=== PATIENT | male | born 1970 | race Caucasian/White ===

== ENCOUNTER 2017-03-30 10:39 | Emergency (ER) | payer OTHER ==
[~2017-03-30 10:39] MED LIST: AMITRIPTYLINE H50 MG PO; COUMADIN2 MG PO; CYCLOBENZAPRINE10 MG PO; DEPAKENE250 MG PO; IMITREX20 MG/ACT; INDOMETHACIN25 MG PO; IRON325 MG PO; LISINOPRIL10 MG PO; MAG-OX 400400 MG PO; METOPROLOL SUCC50 MG PO; NORCO1 TA1 PO; OXYCODONE HCL5 MG PO; PRILOSEC20 MG PO; VERAPAMIL HCL40 MG PO; VISTARIL25 MG PO; WARFARIN SODIUM1 MG PO
--- NOTE | 2017-03-30 12:00 | ED CLINICAL REPORT ---
Clinical Report - Physicians/Mid Levels [facility] [address] [place] [address] 03/30/2017 10:39 Patient: CRZU RIVERA Time Seen: 11:05. Arrived- By private vehicle. Historian- patient. HISTORY OF PRESENT ILLNESS Chief Complaint: LOWER EXTREMITY SWELLING. This started several days ago and is still present but is better now. Severity is described as being moderate. Quality not described as "pain". Modifying factors- worsened by standing. Relieved by lying down. Symptoms located in the area of the right ankle, right leg, left leg and left ankle. The patient has had swelling, but not had redness. No difficulty walking. No bladder dysfunction, bowel dysfunction, sensory loss or motor loss. ( The patient states that he was out in his yard yesterday doing work, and when he came inside to change into GlycoVaxyn, he noticed that his lower legs and ankles swollen. However the right side was bigger than the left. Patient has a history of a DVT on the right which was diagnosed about a year ago. He has been on Coumadin and is unsure whether the clot is still there or not. Patient denies any new pain in either of his legs. He denies shortness of breath or chest pain. He has no history of congestive heart failure or renal failure.). Patient denies an injury. Similar symptoms previously: None. Recent medical care: Not recently seen/assessed. REVIEW OF SYSTEMS No cough, chest pain, difficulty breathing, fever or skin rash. No enlarged lymph nodes, neck pain, back pain, headache or blurred vision. No sore throat, abdominal pain, vomiting, diarrhea or black stools. No difficulty with urination or bloody stools. All systems otherwise negative, except as recorded above. PAST HISTORY Problems: DVT - Deep Venous Thrombosis. Tetanus Status. Renal Colic. Migraine Headache. Ureterolithiasis. Anemia. Gastroesophageal Reflux Disease. Immunizations. Hypertension. Additional Surgeries: Carpal Tunnel Surgery. Left knee surgery. Toe nail removal. Tympanostomy Tubes. Medications: Antidepressant 20mg , daily (can't remember the name). Ondansetron HCl Oral (Tablet 8 mg), as needed. Cyclobenzaprine HCl Oral (Tablet 10 mg), 2x a day. Azlwmuwqwx-GQIX-Kokv-Cod Oral no more than 6 tablets in 24 hours, as needed (for migraines). Coumadin Oral 5 mg, daily. Gemfibrozil Oral 600 mg, daily. Lisinopril Oral 20 mg, daily. Metoprolol ER 200mg daily . Omeprazole Oral 40 mg, daily. OxyCODONE HCl Oral 5 mg, 4x a day. Topiramate Oral 100 mg, daily as needed. TraZODone HCl Oral 50 mg, at bedtime as needed. Verapamil HCl Oral 40 mg, 2x a day. Allergies: NSAIDs. (irritate stomach lining, makes "stomach bleed'. ). SOCIAL HISTORY Former smoker. Occasional alcohol use. No drug use. ADDITIONAL NOTES The nursing notes have been reviewed. PHYSICAL EXAM Vital Signs: 03/30/2017 10:52 BP: 155/85. HR: 64. RR: 11. O2 saturation: 95%. Temp: 98.4 F. Have been reviewed. Appearance: Alert. Oriented X3. No acute distress. Eyes: Pupils equal, round and reactive to light. Eyes normal inspection. ENT: Nose normal. Neck: Normal inspection. CVS: Normal heart rate and rhythm. Pulses normal. Strong peripheral pulses. Heart sounds normal. Respiratory: No respiratory distress. Breath sounds normal. Abdomen: Soft and nontender. Back: Normal inspection. Skin: Skin intact. Skin warm and dry. Normal skin color. Normal skin turgor. Extremities: (The patient has no pitting edema in either lower extremity. He has mild right calf tenderness. His right calf is mildly enlarged compared to the left.). Extremities otherwise negative. Neuro: Oriented X 3. No motor deficit. No sensory deficit. LABS, X-RAYS, AND EKG Lower Extremity Sonography: Negative exam. No compression abnormality noted. Visualized common femoral artery and common femoral vein, superficial femoral artery and superficial femoral vein, deep femoral artery and deep femoral vein and popliteal artery and popliteal vein. Vessels patent. Augmented flow present with calf compression. Study type: utilized duplex sonography. The exam was performed by a radiology technician. The study was interpreted by the radiologist and discussed with the radiologist. Prior studies were not available for comparison. Pulse Oximetry: 03/30/2017 10:52 O2 saturation: 95%. (FIO2 - room air). Interpretation: normal. PROGRESS AND PROCEDURES Course of Care: the patient had no symptoms of congestive heart failure, and no history of renal failure. He did not have any pitting edema and in fact, edema was minimal as noted by me. However, he did have a history of DVT on the right and the right leg was enlarged and I felt that patient should have an ultrasound to evaluate this. This was performed and found to be negative. Patient counseled in person regarding the patient's stable condition, test results, diagnosis and need for follow-up. Concerns were addressed. Old medical records reviewed. Disposition: Discharged. Condition: stable. CLINICAL IMPRESSION Bilateral pedal edema secondary to unknown cause. INSTRUCTIONS (Your ultrasound looks good--no clot is left in your leg. You can try using compression stockings and elevating your legs to work the fluid out.). Warnings: GENERAL WARNINGS: Return or contact your physician immediately if your condition worsens or changes unexpectedly, if not improving as expected, or if other problems arise. Your Current Medications: CONTINUE TAKING THE FOLLOWING MEDICATIONS: Antidepressant* : 20mg daily, can't remember the name. Yhrfdxiyql-HVMP-Oiex-Cod Oral : no more than 6 tablets in 24 hours, prn, for migraines. Follow-up: Follow up with your doctor as needed. Understanding of the discharge instructions verbalized by patient. (Electronically signed by Keisha Lilly MD 03/30/2017 13:31)
--- NOTE | 2017-03-30 12:00 | ED CLINICAL REPORT ---
Clinical Report - Physicians/Mid Levels [facility] [address] [place] [address] 03/30/2017 10:39 Patient: CRUZ RIVERA Time Seen: 11:05. Arrived- By private vehicle. Historian- patient. HISTORY OF PRESENT ILLNESS Chief Complaint: LOWER EXTREMITY SWELLING. This started several days ago and is still present but is better now. Severity is described as being moderate. Quality not described as "pain". Modifying factors- worsened by standing. Relieved by lying down. Symptoms located in the area of the right ankle, right leg, left leg and left ankle. The patient has had swelling, but not had redness. No difficulty walking. No bladder dysfunction, bowel dysfunction, sensory loss or motor loss. ( The patient states that he was out in his yard yesterday doing work, and when he came inside to change into Nerveda, he noticed that his lower legs and ankles swollen. However the right side was bigger than the left. Patient has a history of a DVT on the right which was diagnosed about a year ago. He has been on Coumadin and is unsure whether the clot is still there or not. Patient denies any new pain in either of his legs. He denies shortness of breath or chest pain. He has no history of congestive heart failure or renal failure.). Patient denies an injury. Similar symptoms previously: None. Recent medical care: Not recently seen/assessed. REVIEW OF SYSTEMS No cough, chest pain, difficulty breathing, fever or skin rash. No enlarged lymph nodes, neck pain, back pain, headache or blurred vision. No sore throat, abdominal pain, vomiting, diarrhea or black stools. No difficulty with urination or bloody stools. All systems otherwise negative, except as recorded above. PAST HISTORY Problems: DVT - Deep Venous Thrombosis. Tetanus Status. Renal Colic. Migraine Headache. Ureterolithiasis. Anemia. Gastroesophageal Reflux Disease. Immunizations. Hypertension. Additional Surgeries: Carpal Tunnel Surgery. Left knee surgery. Toe nail removal. Tympanostomy Tubes. Medications: Antidepressant 20mg , daily (can't remember the name). Ondansetron HCl Oral (Tablet 8 mg), as needed. Cyclobenzaprine HCl Oral (Tablet 10 mg), 2x a day. Rfwykoxbnc-ENFI-Ledk-Cod Oral no more than 6 tablets in 24 hours, as needed (for migraines). Coumadin Oral 5 mg, daily. Gemfibrozil Oral 600 mg, daily. Lisinopril Oral 20 mg, daily. Metoprolol ER 200mg daily . Omeprazole Oral 40 mg, daily. OxyCODONE HCl Oral 5 mg, 4x a day. Topiramate Oral 100 mg, daily as needed. TraZODone HCl Oral 50 mg, at bedtime as needed. Verapamil HCl Oral 40 mg, 2x a day. Allergies: NSAIDs. (irritate stomach lining, makes "stomach bleed'. ). SOCIAL HISTORY Former smoker. Occasional alcohol use. No drug use. ADDITIONAL NOTES The nursing notes have been reviewed. PHYSICAL EXAM Vital Signs: 03/30/2017 10:52 BP: 155/85. HR: 64. RR: 11. O2 saturation: 95%. Temp: 98.4 F. Have been reviewed. Appearance: Alert. Oriented X3. No acute distress. Eyes: Pupils equal, round and reactive to light. Eyes normal inspection. ENT: Nose normal. Neck: Normal inspection. CVS: Normal heart rate and rhythm. Pulses normal. Strong peripheral pulses. Heart sounds normal. Respiratory: No respiratory distress. Breath sounds normal. Abdomen: Soft and nontender. Back: Normal inspection. Skin: Skin intact. Skin warm and dry. Normal skin color. Normal skin turgor. Extremities: (The patient has no pitting edema in either lower extremity. He has mild right calf tenderness. His right calf is mildly enlarged compared to the left.). Extremities otherwise negative. Neuro: Oriented X 3. No motor deficit. No sensory deficit. LABS, X-RAYS, AND EKG Lower Extremity Sonography: Negative exam. No compression abnormality noted. Visualized common femoral artery and common femoral vein, superficial femoral artery and superficial femoral vein, deep femoral artery and deep femoral vein and popliteal artery and popliteal vein. Vessels patent. Augmented flow present with calf compression. Study type: utilized duplex sonography. The exam was performed by a technician inventory specialist. The study was interpreted by the radiologist and discussed with the radiologist. Prior studies were not available for comparison. Pulse Oximetry: 03/30/2017 10:52 O2 saturation: 95%. (FIO2 - room air). Interpretation: normal. PROGRESS AND PROCEDURES Course of Care: the patient had no symptoms of congestive heart failure, and no history of renal failure. He did not have any pitting edema and in fact, edema was minimal as noted by me. However, he did have a history of DVT on the right and the right leg was enlarged and I felt that patient should have an ultrasound to evaluate this. This was performed and found to be negative. Patient counseled in person regarding the patient's stable condition, test results, diagnosis and need for follow-up. Concerns were addressed. Old medical records reviewed. Disposition: Discharged. Condition: stable. CLINICAL IMPRESSION Bilateral pedal edema secondary to unknown cause. INSTRUCTIONS (Your ultrasound looks good--no clot is left in your leg. You can try using compression stockings and elevating your legs to work the fluid out.). Warnings: GENERAL WARNINGS: Return or contact your physician immediately if your condition worsens or changes unexpectedly, if not improving as expected, or if other problems arise. Your Current Medications: CONTINUE TAKING THE FOLLOWING MEDICATIONS: Antidepressant* : 20mg daily, can't remember the name. Aaaegncluu-ADKC-Kkmq-Cod Oral : no more than 6 tablets in 24 hours, prn, for migraines. Follow-up: Follow up with your doctor as needed. Understanding of the discharge instructions verbalized by patient. (Electronically signed by Keisha Lilly MD 03/30/2017 13:31)
--- NOTE | 2017-03-30 12:01 | ED NURSING NOTES ---
Clinical Report - Nurses [facility] [address] [place] [address] 03/30/2017 10:39 Patient: CRUZ RIVERA TRIAGE Triage time 10:52 Mar 30 2017. Acuity: LEVEL 3. Chief Complaint: RIGHT LOWER EXTREMITY PAIN. Alert. No acute distress. ELIS COMA SCORE: Elis Coma Scale: 15- eyes open spontaneously (4); best verbal response- oriented x 4 (5); best motor response- obeys commands (6). --11:05 Karen Kaur R.N. 10:52 03/30/17. BP: 155/85. HR: 64. RR: 11. O2 saturation: 95%. Temp: 98.4 F. Pain level now 11/17. --11:05 Karen Kaur R.N. Weight: 111.1 kg stated. Height/Length: 72 inches Per Patient. BMI: 33.2. --10:52 Karen Kaur R.N. Medications Tsmoyabscc-RBXH-Rdvd-Cod Oral no more than 6 tablets in 24 hours, as needed (for migraines). Coumadin Oral 5 mg, daily. Gemfibrozil Oral 600 mg, daily. Lisinopril Oral 20 mg, daily. Metoprolol ER 200mg daily . Omeprazole Oral 40 mg, daily. OxyCODONE HCl Oral 5 mg, 4x a day. Topiramate Oral 100 mg, daily as needed. TraZODone HCl Oral 50 mg, at bedtime as needed. Verapamil HCl Oral 40 mg, 2x a day. --10:57 Karen Kaur R.N. Cyclobenzaprine HCl Oral (Tablet 10 mg), 2x a day. --11:02 aKren Kaur R.N. Ondansetron HCl Oral (Tablet 8 mg), as needed. --11:02 Karen Kaur R.N. Antidepressant 20mg , daily (can't remember the name). --11:03 Karen Kaur R.N. Allergies NSAIDs. (irritate stomach lining, makes "stomach bleed'. ) --10:58 Karen aKur R.N. History Arrived by private vehicle. Historian: patient. Primary physician ([facility]). ( Pt sent over from [facility] for r/o DVT in the lower extremity. Pt has noticed that his lower legs and ankles have been swollen, cannot pinpoint a date or length of time. Some areas are painful. Has been more active than normal, no recent long trips or flights. Pt has a Hx of DVT in the Right LE 1 year ago, takes Coumadin for this 5 mg daily. Last Coumadin check was 2 months ago - [facility]. INR was 2.6 at that time. Currently the pt has a pain level of 1/10 on the right posterior leg.). No injury occurred. This occurred at an unknown time. 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 PAST MEDICAL HX: Tetanus status: up-to-date. Immunizations: seasonal influenza. SOCIAL HX: Former smoker. Occasional alcohol use. No drug use. He has not traveled outside the [place] No infectious disease exposure. FALL RISK ASSESSMENT: Fall risk assessment completed. No fall risk identified. NUTRITIONAL RISK ASSESSMENT: The nutritional risk assessment revealed no deficiencies. FUNCTIONAL ASSESSMENT: Functional assessment: no impairments noted. LEARNING NEEDS ASSESSMENT: The learning needs assessment revealed no barriers. SKIN INTEGRITY ASSESSMENT: Skin integrity risk assessment completed. No skin integrity risk identified. --11:05 Karen Kaur R.N. PROBLEMS: Lower Extremity Pain. DVT - Deep Venous Thrombosis. Tetanus Status. Renal Colic. Migraine Headache. Ureterolithiasis. Anemia. Gastroesophageal Reflux Disease. Immunizations. Hypertension. --11:01 Karen Kaur R.N. Cellulitis [RuleOut]. --11:01 Karen Kaur R.N. ADDITIONAL SURGERIES: Carpal Tunnel Surgery. Left knee surgery. Toe nail removal. Tympanostomy Tubes. --11:01 Karen Kaur R.N. Interventions ID band on patient. To room. --11:05 Karen Kaur R.N. PHYSICAL ASSESSMENT Ambulatory to room. GENERAL / NEURO / PSYCH: Oriented X 4. Alert. Appears in no acute distress. EXTREMITIES: Extremity pulses are within normal limits. Extremities exhibit normal ROM. Neuro-vascular status intact to the extremity. SKIN: Skin is warm and dry. --11:26 Karen Kaur R.N. NURSING PROGRESS NOTES Patient ready for evaluation- ED physician notified. --11:24 Karen Kaur R.N. ( US at bedside.). --11:33 Karen Kaur R.N. ( pt ready for discharge. US Negative.). --12:09 Karen Kaur R.N. DISPOSITION / DISCHARGE Condition at departure: improved and stable. No learning barriers present. Discharge instructions provided and reviewed with the patient. Patient verbalized understanding. Written instructions provided in Thai. The patient was discharged by the physician. He was discharged home. He left the Emergency Department ambulatory and via private vehicle. Patient driving. FALL RISK ASSESSMENT: Fall risk assessment completed. No fall risk identified. --12:10 Karen Kaur R.N. 12:10 03/30/17. BP: 124/83. HR: 60. RR: 18. O2 saturation: 96%. Pain level now 0/10. --12:10 Karen Kaur R.N. Departure time: 12:16 Mar 30 2017. --12:16 Karen Kaur R.N. Locked/Released at 03/30/2017 12:17 by Karen Kaur R.N.
--- NOTE | 2017-03-30 12:01 | ED NURSING NOTES ---
Clinical Report - Nurses [facility] [address] [place] [address] 03/30/2017 10:39 Patient: CRUZ RIVERA TRIAGE Triage time 10:52 Mar 30 2017. Acuity: LEVEL 3. Chief Complaint: RIGHT LOWER EXTREMITY PAIN. Alert. No acute distress. ELIS COMA SCORE: Elis Coma Scale: 15- eyes open spontaneously (4); best verbal response- oriented x 4 (5); best motor response- obeys commands (6). --11:05 Karen Kaur R.N. 10:52 03/30/17. BP: 155/85. HR: 64. RR: 11. O2 saturation: 95%. Temp: 98.4 F. Pain level now 11/17. --11:05 Karen Kaur R.N. Weight: 111.1 kg stated. Height/Length: 72 inches Per Patient. BMI: 33.2. --10:52 Karen Kaur R.N. Medications Ietflmdqnj-HGCT-Hwpe-Cod Oral no more than 6 tablets in 24 hours, as needed (for migraines). Coumadin Oral 5 mg, daily. Gemfibrozil Oral 600 mg, daily. Lisinopril Oral 20 mg, daily. Metoprolol ER 200mg daily . Omeprazole Oral 40 mg, daily. OxyCODONE HCl Oral 5 mg, 4x a day. Topiramate Oral 100 mg, daily as needed. TraZODone HCl Oral 50 mg, at bedtime as needed. Verapamil HCl Oral 40 mg, 2x a day. --10:57 Karen Kaur R.N. Cyclobenzaprine HCl Oral (Tablet 10 mg), 2x a day. --11:02 Karen Kaur R.N. Ondansetron HCl Oral (Tablet 8 mg), as needed. --11:02 Karen Kaur R.N. Antidepressant 20mg , daily (can't remember the name). --11:03 Karen Kaur R.N. Allergies NSAIDs. (irritate stomach lining, makes "stomach bleed'. ) --10:58 Karen Kaur R.N. History Arrived by private vehicle. Historian: patient. Primary physician ([facility]). ( Pt sent over from [facility] for r/o DVT in the lower extremity. Pt has noticed that his lower legs and ankles have been swollen, cannot pinpoint a date or length of time. Some areas are painful. Has been more active than normal, no recent long trips or flights. Pt has a Hx of DVT in the Right LE 1 year ago, takes Coumadin for this 5 mg daily. Last Coumadin check was 2 months ago - [facility]. INR was 2.6 at that time. Currently the pt has a pain level of 1/10 on the right posterior leg.). No injury occurred. This occurred at an unknown time. 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 PAST MEDICAL HX: Tetanus status: up-to-date. Immunizations: seasonal influenza. SOCIAL HX: Former smoker. Occasional alcohol use. No drug use. He has not traveled outside the [place] No infectious disease exposure. FALL RISK ASSESSMENT: Fall risk assessment completed. No fall risk identified. NUTRITIONAL RISK ASSESSMENT: The nutritional risk assessment revealed no deficiencies. FUNCTIONAL ASSESSMENT: Functional assessment: no impairments noted. LEARNING NEEDS ASSESSMENT: The learning needs assessment revealed no barriers. SKIN INTEGRITY ASSESSMENT: Skin integrity risk assessment completed. No skin integrity risk identified. --11:05 Karen Kaur R.N. PROBLEMS: Lower Extremity Pain. DVT - Deep Venous Thrombosis. Tetanus Status. Renal Colic. Migraine Headache. Ureterolithiasis. Anemia. Gastroesophageal Reflux Disease. Immunizations. Hypertension. --11:01 Karen Kaur R.N. Cellulitis [RuleOut]. --11:01 Karen Kaur R.N. ADDITIONAL SURGERIES: Carpal Tunnel Surgery. Left knee surgery. Toe nail removal. Tympanostomy Tubes. --11:01 Karen Kaur R.N. Interventions ID band on patient. To room. --11:05 Karen Kaur R.N. PHYSICAL ASSESSMENT Ambulatory to room. GENERAL / NEURO / PSYCH: Oriented X 4. Alert. Appears in no acute distress. EXTREMITIES: Extremity pulses are within normal limits. Extremities exhibit normal ROM. Neuro-vascular status intact to the extremity. SKIN: Skin is warm and dry. --11:26 Karen Kaur R.N. NURSING PROGRESS NOTES Patient ready for evaluation- ED physician notified. --11:24 Karen Kaur R.N. ( US at bedside.). --11:33 Karen Kaur R.N. ( pt ready for discharge. US Negative.). --12:09 Karen Kaur R.N. DISPOSITION / DISCHARGE Condition at departure: improved and stable. No learning barriers present. Discharge instructions provided and reviewed with the patient. Patient verbalized understanding. Written instructions provided in Burmese. The patient was discharged by the physician. He was discharged home. He left the Emergency Department ambulatory and via private vehicle. Patient driving. FALL RISK ASSESSMENT: Fall risk assessment completed. No fall risk identified. --12:10 Karen Kaur R.N. 12:10 03/30/17. BP: 124/83. HR: 60. RR: 18. O2 saturation: 96%. Pain level now 0/10. --12:10 Karen Kaur R.N. Departure time: 12:16 Mar 30 2017. --12:16 Karen Kaur R.N. Locked/Released at 03/30/2017 12:17 by Karen Kaur R.N.
--- NOTE | 2017-03-30 12:01 | ED ORDER SUMMARY ---
..... Patient: CRUZ RIVERA OrderSheet [facility] VisitID: [id number] [address] [place] [address] 46y, M Registration Date/Time: 03/30/2017 ORDER SHEET Weight: 111.1 kg (stated) Allergies: NSAIDs GENERAL ORDERS: US Venous Right Urgent (11:06 03/30/2017 Nestor CURRAN) (Ack 11:14 WAouse ER Tech1) (11:57 MWinterer R.NJose) MEDICATION ORDERS: IV FLUIDS: ORDER SHEET NOTES: [Electronically signed by Karen Kaur R.N. (12:17 03/30/2017)] [Electronically signed by Keisha Lilly MD (13:31 03/30/2017)] [Electronically locked/signed by Karen Kaur R.N. (12:17 03/30/2017)]
--- NOTE | 2017-03-30 12:01 | ED ORDER SUMMARY ---
..... Patient: CRUZ RIVERA OrderSheet [facility] VisitID: [id number] [address] [place] [address] 46y, M Registration Date/Time: 03/30/2017 ORDER SHEET Weight: 111.1 kg (stated) Allergies: NSAIDs GENERAL ORDERS: US Venous Right Urgent (11:06 03/30/2017 Nestor CURRAN) (Ack 11:14 [place]ouse ER Tech1) (11:57 MWinterer R.NJose) MEDICATION ORDERS: IV FLUIDS: ORDER SHEET NOTES: [Electronically signed by Karen Kaur R.N. (12:17 03/30/2017)] [Electronically signed by Keisha Lilly MD (13:31 03/30/2017)] [Electronically locked/signed by Karen Kaur R.N. (12:17 03/30/2017)]
--- NOTE | 2017-03-30 13:31 | ED MED RECONCILIATION SUMMARY ---
Patient: CRUZ RIVERA Medication Reconciliation Report [facility] VisitID: [id number] [address] [place] [address] 46y, M Registration Date/Time: 03/30/2017 Weight: 111.1 kg Height/Length: 72 in. BMI: 33.2 ALLERGIES: NSAIDs The patient's Home Medications are listed below: CONTINUE TAKING THE FOLLOWING MEDICATIONS: Antidepressant 20mg , daily, can't remember the name Xpzcnazjqf-YRFS-Jclh-Cod Oral no more than 6 tablets in 24 hours, for migraines THE FOLLOWING MEDICATIONS NEED TO BE RECONCILED: Coumadin Oral 5 mg, daily Cyclobenzaprine HCl Oral (10 mg), 2x a day Gemfibrozil Oral 600 mg, daily Lisinopril Oral 20 mg, daily Metoprolol ER 200mg daily Omeprazole Oral 40 mg, daily Ondansetron HCl Oral (8 mg) OxyCODONE HCl Oral 5 mg, 4x a day Topiramate Oral 100 mg, daily TraZODone HCl Oral 50 mg, at bedtime Verapamil HCl Oral 40 mg, 2x a day The source(s) of the original Home Medication information: Not obtained. The following Medications were given to the patient in the Emergency Department: None. The following Medications were prescribed to the patient: None.
--- NOTE | 2017-03-30 13:31 | ED MED RECONCILIATION SUMMARY ---
Patient: CRUZ RIVERA Medication Reconciliation Report [facility] VisitID: [id number] [address] [place] [address] 46y, M Registration Date/Time: 03/30/2017 Weight: 111.1 kg Height/Length: 72 in. BMI: 33.2 ALLERGIES: NSAIDs The patient's Home Medications are listed below: CONTINUE TAKING THE FOLLOWING MEDICATIONS: Antidepressant 20mg , daily, can't remember the name Oemiktfzrf-VRRG-Uxkm-Cod Oral no more than 6 tablets in 24 hours, for migraines THE FOLLOWING MEDICATIONS NEED TO BE RECONCILED: Coumadin Oral 5 mg, daily Cyclobenzaprine HCl Oral (10 mg), 2x a day Gemfibrozil Oral 600 mg, daily Lisinopril Oral 20 mg, daily Metoprolol ER 200mg daily Omeprazole Oral 40 mg, daily Ondansetron HCl Oral (8 mg) OxyCODONE HCl Oral 5 mg, 4x a day Topiramate Oral 100 mg, daily TraZODone HCl Oral 50 mg, at bedtime Verapamil HCl Oral 40 mg, 2x a day The source(s) of the original Home Medication information: Not obtained. The following Medications were given to the patient in the Emergency Department: None. The following Medications were prescribed to the patient: None.
--- NOTE | 2017-03-30 13:31 | ED DISCHARGE INSTRUCTIONS ---
Patient: CRUZ RIVERA General Instructions [facility] VisitID: [id number] [place] [address] 46y, M Registration Date/Time: 03/30/2017 Bilateral pedal edema secondary to unknown cause. INSTRUCTIONS (Your ultrasound looks good--no clot is left in your leg. You can try using compression stockings and elevating your legs to work the fluid out.). Warnings: GENERAL WARNINGS: Return or contact your physician immediately if your condition worsens or changes unexpectedly, if not improving as expected, or if other problems arise. Your Current Medications: CONTINUE TAKING THE FOLLOWING MEDICATIONS: Antidepressant* : 20mg daily, can't remember the name. Ovajfpfuga-SDPP-Ehrt-Cod Oral : no more than 6 tablets in 24 hours, prn, for migraines. Follow-up: Follow up with your doctor as needed. Understanding of the discharge instructions verbalized by patient. ADDITIONAL INFORMATION Leg Swelling [Bilateral] Swelling of the feet, ankles and legs is called "Edema." It is due to excess fluid collecting in the tissues. Because of gravity, excess fluid in the body settles in the lowest part. This is why the legs and feet are most affected. Some of the causes for edema include: Disease of the heart (congestive heart failure or "CHF") Prolonged standing or sitting (with the legs in the down position) Infection of the feet or legs Venous Insufficiency (congestion of blood in the veins of the legs) Varicose veins (dilated veins of the lower leg) Garters, or clothing that constricts your legs. (These will cause venous congestion by restricting blood flow.) Some medicines (hormones such as control pills; some blood pressure medicines, such as calcium channel blockers; steroids; some antidepressants such as MAO inhibitors and tricyclics.) Menstrual periods with fluid retention Renal insufficiency (a form of kidney disease) Liver failure (Some swelling is normal, but a sudden increase in leg swelling or weight gain can be a sign of a dangerous complication of ). Medical treatment will depend on the cause of your swelling. Diuretics (water pills) may be prescribed to remove excess fluid. Home Care: Do not wear garments that constrict your legs (such as garters). Elevate your legs while lying or sitting. If infection, injury or recent surgery is the cause for your swelling, stay off your legs as much as possible until symptoms improve. If your doctor says that your leg swelling is caused by venous insufficiency or varicose veins, do not sit or winch driver one place for long periods of time. Take breaks and walk about every few hours. Brisk walking is a good exercise and helps circulate the congested blood from your leg. Talk to your doctor about the use of support stockings to prevent daytime leg swelling. If your doctor says that heart disease is the cause of your leg swelling, follow a low-salt diet to prevent excess fluid retention. Follow Up with your doctor or as advised by our staff. Get Prompt Medical Attention if any of the following occur: New or worsening shortness of breath or chest pain Increasing swelling in both legs or ankles Swelling of the abdomen Redness, warmth or swelling in one leg Fever of 100.4F (38C) or higher, or as directed by your healthcare provider Yellow color to the skin or eyes Rapid, unexplained weight gain You have been given the following additional information: Peripheral Edema, Bilateral (Electronically signed by Keisha Lilly MD 03/30/2017 13:31)
--- NOTE | 2017-03-30 13:31 | ED MAR SUMMARY ---
..... Medication Administration Record [facility] [address] [place] [place], [place] [id number] Patient: CRUZ RIVERA Visit ID: [id number] 46y, M Weight: 111.1 kg Height/Length: 72 in BMI: 33.2 ALLERGIES: NSAIDs
--- NOTE | 2017-03-30 13:31 | ED DISCHARGE INSTRUCTIONS ---
Patient: CRUZ RIVERA General Instructions [facility] VisitID: [id number] [place] [address] 46y, M Registration Date/Time: 03/30/2017 Bilateral pedal edema secondary to unknown cause. INSTRUCTIONS (Your ultrasound looks good--no clot is left in your leg. You can try using compression stockings and elevating your legs to work the fluid out.). Warnings: GENERAL WARNINGS: Return or contact your physician immediately if your condition worsens or changes unexpectedly, if not improving as expected, or if other problems arise. Your Current Medications: CONTINUE TAKING THE FOLLOWING MEDICATIONS: Antidepressant* : 20mg daily, can't remember the name. Kzglzzxhro-AMGV-Jorg-Cod Oral : no more than 6 tablets in 24 hours, prn, for migraines. Follow-up: Follow up with your doctor as needed. Understanding of the discharge instructions verbalized by patient. ADDITIONAL INFORMATION Leg Swelling [Bilateral] Swelling of the feet, ankles and legs is called "Edema." It is due to excess fluid collecting in the tissues. Because of gravity, excess fluid in the body settles in the lowest part. This is why the legs and feet are most affected. Some of the causes for edema include: Disease of the heart (congestive heart failure or "CHF") Prolonged standing or sitting (with the legs in the down position) Infection of the feet or legs Venous Insufficiency (congestion of blood in the veins of the legs) Varicose veins (dilated veins of the lower leg) Garters, or clothing that constricts your legs. (These will cause venous congestion by restricting blood flow.) Some medicines (hormones such as control pills; some blood pressure medicines, such as calcium channel blockers; steroids; some antidepressants such as MAO inhibitors and tricyclics.) Menstrual periods with fluid retention Renal insufficiency (a form of kidney disease) Liver failure (Some swelling is normal, but a sudden increase in leg swelling or weight gain can be a sign of a dangerous complication of ). Medical treatment will depend on the cause of your swelling. Diuretics (water pills) may be prescribed to remove excess fluid. Home Care: Do not wear garments that constrict your legs (such as garters). Elevate your legs while lying or sitting. If infection, injury or recent surgery is the cause for your swelling, stay off your legs as much as possible until symptoms improve. If your doctor says that your leg swelling is caused by venous insufficiency or varicose veins, do not sit or helix coil winder one place for long periods of time. Take breaks and walk about every few hours. Brisk walking is a good exercise and helps circulate the congested blood from your leg. Talk to your doctor about the use of support stockings to prevent daytime leg swelling. If your doctor says that heart disease is the cause of your leg swelling, follow a low-salt diet to prevent excess fluid retention. Follow Up with your doctor or as advised by our staff. Get Prompt Medical Attention if any of the following occur: New or worsening shortness of breath or chest pain Increasing swelling in both legs or ankles Swelling of the abdomen Redness, warmth or swelling in one leg Fever of 100.4F (38C) or higher, or as directed by your healthcare provider Yellow color to the skin or eyes Rapid, unexplained weight gain You have been given the following additional information: Peripheral Edema, Bilateral (Electronically signed by Keisha Lilly MD 03/30/2017 13:31)
--- NOTE | 2017-03-30 13:31 | ED MAR SUMMARY ---
..... Medication Administration Record [facility] [address] [place] [id number] Patient: CRUZ RIVERA Visit ID: [id number] 46y, M Weight: 111.1 kg Height/Length: 72 in BMI: 33.2 ALLERGIES: NSAIDs
--- NOTE | 2017-03-30 13:49 | DIAGNOSTIC IMAGING REPORT ---
PROCEDURE: US VENOUS - RIGHT EXT INDICATION: SWELLING TECHNIQUE: Duplex sonography of the deep venous system in the right lower extremity was performed. Compression and augmentation techniques were used. COMPARISON: Right lower extremities 01/24/2013 FINDINGS: Each interrogated segment of deep vein from the common femoral vein into the calf veins demonstrates normal compressibility, augmentation and/or color Doppler flow without filling defect. No evidence of significant soft-tissue edema, soft-tissue mass or cyst. IMPRESSION: 1. No deep venous thrombosis in the right lower extremity.
== END 2017-03-30 12:15 | disposition home or self-care (01) ==
LOC: ED SRH 10:39
DX: R60.0 Localized edema (principal); Z86.718 Personal history of other venous thrombosis and embolism; Z79.01 Long term (current) use of anticoagulants; I10 Essential (primary) hypertension; K21.9 Gastro-esophageal reflux disease without esophagitis; Z79.899 Other long term (current) drug therapy; Z87.891 Personal history of nicotine dependence; Z88.6 Allergy status to analgesic agent